=== PATIENT | male | born 1950 | race African-American/Black ===

== ENCOUNTER 2022-12-31 22:59 | Emergency (ER) | payer MEDICARE ==
[~2022-12-31] VITALS: Ht 175.3 cm; Wt 97.5 kg
[2022-12-31] MEDS ORDERED: PREDNISONE20 MG PO (23:18)
[2022-12-31] MEDS ORDERED: DIPHENHYDRAMINE50 M1 PO (23:18)
[2023-01-01] VITALS: BP 162/88
== END 2023-01-01 | disposition home or self-care (01) ==
LOC: FSED 23:05
DX: R21 Rash and other nonspecific skin eruption (principal); I10 Essential (primary) hypertension
CPT/HCPCS: 99282